=== PATIENT | female | born 1965 | race Caucasian/White ===

== ENCOUNTER → 2021-02-28 | Day surgery (SDC) | payer MEDICARE ==
[~2021-02-28] VITALS: Ht 157.5 cm; Wt 59.0 kg
[~2021-02-28] MED LIST: AIMOVIG AU140 MG/1 M IJ; BUTALB-ACETAMI1 EACH PO; CALCIUM + D SO1 EACH PO; CLONAZEPAM0.5 MG PO; CYCLOBENZAPRINE10 MG PO; DESVENLAFAXINE100 MG PO; IMITREX100 MG PO; LINZESS290 MCG PO; PROBIOTIC1 EAC3 PO; PROTONIX 40MG T40 MG PO; VITAMIN D21250 MCG PO; VOLTAREN **OUT50 MG PO; WOMEN'S 50 PLU1 EACH PO; ZOFRAN4 M1 PO
== END | disposition home or self-care (01) ==
LOC: FAS 05:50
DX: M17.12 Unilateral primary osteoarthritis, left knee (principal); T84.093A Other mechanical complication of internal left knee prosthesis, initial encounter; R11.2 Nausea with vomiting, unspecified; K21.9 Gastro-esophageal reflux disease without esophagitis; E78.00 Pure hypercholesterolemia, unspecified; Z79.1 Long term (current) use of non-steroidal anti-inflammatories (NSAID); Z79.899 Other long term (current) drug therapy
CPT/HCPCS: 76000; J1040; J2001; J2250; J2704; J7120; Q9967